=== PATIENT | male | born 1975 | race Two or more races ===

== ENCOUNTER 2017-10-30 13:11 | Emergency (ER) | payer SELFPAY ==
[2017-10-30] MEDS ORDERED: CONTRAST GIVEN MC (14:45)
[2017-10-30 14:50] LABS: ADD MAN DIFF? NO
[2017-10-30 14:53] LABS: BASO % 0 % (0-3); EOS % 0 % (0-3); HEMATOCRIT 50.8 % (39.0-53.0); LYMPH # 0.3 x10^3/uL (1.0-4.8); LYMPH % 2 % (24-48); MEAN CORPUSCULAR HEMOGLOBIN 30 pg (25-35); MEAN CORPUSCULAR HGB CONC 34 g/dL (31-37); MEAN CORPUSCULAR VOLUME 89 fL (79-100); MONO # 0.7 x10^3/uL (0.0-1.1); MONO % 5 % (0-9); NEUT # 12.4 x10^3uL (1.8-7.7); NEUT % 92 % (31-73); PLATELET COUNT 273 x10^3/uL (140-400); RED BLOOD COUNT 5.69 x10^6/uL (4.30-5.70); RED CELL DISTRIBUTION WIDTH 13.1 % (11.5-14.5); WHITE BLOOD COUNT 13.5 x10^3/uL (4.0-11.0)
[2017-10-30] MEDS: IV NORMAL SALINE 1000ML BAG 1,000 ML IV (14:58)
[2017-10-30] MEDS: ONDANSETRON PF 4 MG/2 ML VIAL. IV (14:59)
[2017-10-30] MEDS: MORPHINE SULFATE 2 MG/ML DISP.SYRIN. IV/SQ (14:59)
[2017-10-30] MEDS: IOHEXOL 240 MG/ML 50ML VIAL. PO (15:20)
[2017-10-30 15:37] LABS: PARTIAL THROMBOPLASTIN TIME 25 SEC (24-38); PROTHROMBIN TIME PATIENT 12.3 SEC (11.7-14.0)
[2017-10-30 15:44] LABS: ANION GAP 10 (6-14); BLOOD UREA NITROGEN 22 mg/dL (8-26); CALCIUM 8.8 mg/dL (8.5-10.1); CARBON DIOXIDE 30 mmol/L (21-32); CHLORIDE 103 mmol/L (98-107); GFR 81.2; GLUCOSE 104 mg/dL (70-99); SODIUM 143 mmol/L (136-145)
[2017-10-30 15:49] LABS: % BANDS 4 % (0-9); % LYMPHS 4 % (24-48); % MONOS 6 % (0-10); % SEGS 86 % (35-66); PLT ESTIMATE ADEQUATE (ADEQUATE)
[2017-10-30 15:50] LABS: ALBUMIN 4.2 g/dL (3.4-5.0); ALK PHOS 74 U/L (46-116); ALT (SGPT) 67 U/L (16-63); AST (SGOT) 45 U/L (15-37); DIRECT BILIRUBIN 0.1 mg/dL (0.0-0.2); LIPASE 132 U/L (73-393); TOTAL BILIRUBIN 0.7 mg/dL (0.2-1.0); TOTAL PROTEIN 8.1 g/dL (6.4-8.2)
[2017-10-30 15:58] LABS: CKMB INDEX 1.1 % (0-4); CKMB MASS 0.6 ng/mL (0.0-3.6); CREATINE KINASE 53 U/L (39-308)
[2017-10-30] MEDS: IOHEXOL 300 MG/ML 100ML VIAL. IV (16:21)
[2017-10-30 18:17] LABS: TROPONINI < 0.017 ng/mL (0.000-0.055)
[2017-10-30 18:26] LABS: CKMB MASS < 0.5 ng/mL (0.0-3.6); CREATINE KINASE 78 U/L (39-308)
[2017-10-30 19:47] LABS: BILIRUBIN,URINE NEGATIVE (NEG); CLARITY,URINE CLEAR; COLOR,URINE YELLOW; GLUCOSE,URINE NEGATIVE (NEG); NITRITE,URINE NEGATIVE (NEG); PROTEIN,URINE NEGATIVE (NEG-TRACE); UROBILINOGEN,URINE 0.2 mg/dL (0.2 mg/dL)
[2017-10-30 19:53] LABS: BACTERIA,URINE 0 /HPF (0-FEW); RBC,URINE 0 /HPF (0-2); SQUAMOUS EPITHELIAL CELL,UR FEW /LPF; WBC,URINE OCC /HPF (0-4)
== END 2017-10-30 19:43 | disposition home or self-care (01) ==
LOC: ER 19:43
DX: K52.9 Noninfective gastroenteritis and colitis, unspecified (principal)
CPT/HCPCS: 36415; 74177; 80048; 80076; 81001; 82553; 83690; 84484; 85007; 85025; 85610; 85730; 93005; 96361; 96374; 96375; 99285-25; J2270; J2405; J7030; Q9966; Q9967